=== PATIENT | female | born 1960 | race Caucasian/White ===

== ENCOUNTER 2016-10-28 18:51 | Emergency (ER) | payer OTHER, SELFPAY ==
[2016-10-28 19:00] VITALS: BMI 31.1
--- NOTE | 2016-10-28 19:22 | ED PDOC ---
Arrival/HPI - General Historian: Patient, Family - History of Present Illness Time/Duration: Prior to Arrival - General Chief Complaint: Back Pain Time Seen by Provider: 10/28/16 19:00 - History of Present Illness Narrative History of Present Illness (Text): 10/28/16 19:16 56 y/o female with hx HLD presents with complaints of left sided flank pain. Patient states pain started suddenly today and has been unrelenting. Patient localizes her pain to the left superior thoracic wall/flank. Pain is worse with movement. Patient took Tylenol and Ibuprofen without significant relief. Patient denies dysuria, hematuria,n/v/d, abdominal pain, fever, chills, midline back pain or recent trauma or injury. Patient has no history of prior renal calculi. (Musa Ma) Past Medical History - Provider Review Nursing Documentation Reviewed: Yes - Infectious Disease Hx of Infectious Diseases: None - Cardiac Hx Cardiac Disorders: Yes - Pulmonary Hx Respiratory Disorders: No - Neurological Hx Neurological Disorder: No - HEENT Hx HEENT Disorder: No - Renal Hx Renal Disorder: No - Endocrine/Metabolic Hx Endocrine Disorders: No - Hematological/Oncological Hx Blood Disorders: No - Integumentary Hx Dermatological Disorder: No - Musculoskeletal/Rheumatological Hx Musculoskeletal Disorders: No - Gastrointestinal Hx Gastrointestinal Disorders: No - Genitourinary/Gynecological Hx Genitourinary Disorders: No - Psychiatric Hx Psychophysiologic Disorder: No Hx Substance Use: No - Surgical History Other/Comment: abdominal plasty - Anesthesia Hx Anesthesia: No Hx Anesthesia Reactions: No Hx Malignant Hyperthermia: No Family/Social History - Physician Review Nursing Documentation Reviewed: Yes Family/Social History: Unknown Family HX Smoking Status: Never Smoked Hx Alcohol Use: No Hx Substance Use: No Allergies/Home Meds Allergies/Adverse Reactions: Allergies No Known Allergies Allergy (Verified 10/28/16 19:00) Review of Systems - Physician Review All systems were reviewed & negative as marked: Yes - Review of Systems Constitutional: absent: Fatigue, Fevers Eyes: Normal, Photophobia ENT: Normal Respiratory: absent: SOB, Cough Cardiovascular: absent: Chest Pain, [place] Gastrointestinal: absent: Abdominal Pain, Diarrhea, Nausea, Vomiting Genitourinary Female: Other (left flank pain ). absent: Dysuria, Frequency, Hematuria, Urine Output Changes Musculoskeletal: absent: Arthralgias, Back Pain, Neck Pain Skin: absent: Rash, Pruritis Neurological: absent: Headache, Dizziness, Focal Weakness Psychiatric: absent: Anxiety, Depression Physical Exam Vital Signs Reviewed: Yes Temperature: Afebrile Blood Pressure: Normal Pulse: Regular Respiratory Rate: Normal Appearance: Positive for: Well-Appearing, Non-Toxic Pain Distress: Moderate Mental Status: Positive for: Alert and Oriented X 3 - Systems Exam Head: Present: Atraumatic, Normocephalic Pupils: Present: PERRL Extroacular Muscles: Present: EOMI Conjunctiva: Present: Normal Mouth: Present: Moist Mucous Membranes Respiratory/Chest: Present: Clear to Auscultation, Respiratory Distress. No: Good Air Exchange Cardiovascular: Present: Regular Rate and Rhythm, Normal S1, S2 Abdomen: Present: Normal Bowel Sounds. No: Tenderness, Distention, Peritoneal Signs Back: Present: Normal Inspection, CVA Tenderness (+ left ). No: Paraspinal Tenderness Upper Extremity: Present: Normal Inspection. No: Cyanosis, Edema Lower Extremity: Present: Normal Inspection, NORMAL PULSES. No: Edema, CALF TENDERNESS Neurological: Present: GCS=15, CN II-XII Intact, Speech Normal, Motor Func Grossly Intact Skin: Present: Warm, Dry Psychiatric: Present: Alert, Oriented x 3, Normal Insight, Normal Concentration Vital Signs Temp Pulse Resp BP Pulse Ox 10/28/16 20:04 98 F 72 17 113/72 99 10/28/16 19:09 98.3 F 77 18 164/79 H 100 10/28/16 19:02 98.8 F 74 20 158/87 H 99 Medical Decision Making ED Course and Treatment: 10/28/16 19:25 56 y/o female with hx HLD presenting with left flank pain likely secondary to renal calculus. Patient is afebrile and without urinary complaints or hematuria. Patient has no abdominal pain or n/v/d. - Toradol 30 IV now - CBC - CMP - UA - CT abd/pelvis w/o contrast - reassess 10/28/16 20:44 Labs reviewed. There is no leukocytosis or shift. There is no evidence of renal insufficiency. UA reveals trace blood. There is no evidence of UTI. CT results reviewed and are listed below. There is no renal calculi or evidence of hydronephrosis. On reevaluation patient's pain is greatly improved after having a large flatus. The patient is instructed to f/u at [facility] for continued evaluation of blood noted on UA. EXAM DATE/TIME: 10/28/2016 7:12 PM COMPARISON: There are no prior studies for comparison. FINDINGS: Lower thorax: Heart size is normal. There is atelectasis at the lung bases. There is subsegmental atelectasis in the lingula. There no effusions There is a small hiatal hernia. ABDOMEN: Liver: There is a small calcification in the liver. Gallbladder and bile ducts: Gallbladder is distended with multiple small stones. Common bile duct is unremarkable. Pancreas: unremarkable Spleen: unremarkable Adrenals: unremarkable Kidneys and ureters: Kidneys and ureters are unremarkable. There are no renal or ureteral stones Stomach and bowel: Stomach is partially distended. Rotation is normal. There is no obstruction. There is fecalization in the dista and terminal ileum. Appendix is unremarkable. Colon is incompletely distended which limits evaluation. There is scattered diverticulosis Appendix: See stomach and bowel PELVIS: Bladder: Bladder is partially distended. Reproductive: Uterus and adnexal structures are unremarkable. ABDOMEN and PELVIS: Intraperitoneal space: There is no free air or free fluid. Bones/joints: There are degenerative changes in the osseus structures. Soft tissues: There postsurgical changes in the abdominal wall. There is a small fat containing umbilical hernia. Vasculature: There are vascular calcifications.There are multiple phleboliths. Lymph nodes: There is no pathologic adenopathy. IMPRESSION: Gallstones; no renal or ureteral stones or hydronephrosis ( Musa Ma) Patient Seen With Resident: In agreement with resident note. Patient was seen and evaluated with resident, came up with plan and treatment together. On reevaluation, patient reports that she feels much better and would like to be discharged home. Patient's repeat abdominal exam is soft, nontender, non distended with positive bowel sounds in all 4 quadrants and no peritoneal signs. Patient is tolerating PO without any difficulty. Patient has been made aware that she has hematuria, and she is to follow-up for further investigation with her primary physician Pt states she understands to return to the ER right away for new or worsening symptoms or for inability to f/u with PMD or specialist as instructed. Patient states that she fully agrees with and understands discharge instructions. States that she agrees with the plan and disposition. Verbalized and repeated discharge instructions and plan. I have given the patient opportunity to ask any additional questions. (Harley Vazquez) - Lab Interpretations Lab Results: 10/28/16 19:17 10/28/16 19:17 Lab Results 10/28/16 19:20: Urine Color Yellow, Urine Appearance Clear, Urine pH 6.5, Ur Specific [place] 1.010, Urine Protein Negative, Urine Glucose (UA) Negative, Urine Ketones Negative, Urine Blood Trace-intact H, Urine Nitrate Negative, Urine Bilirubin Negative, Urine Urobilinogen 0.2, Ur Leukocyte Esterase Negative , Urine RBC 1 - 3, Urine WBC 0 - 2, Ur Epithelial Cells 10 - 12 10/28/16 19:17: WBC 5.9 D, RBC 4.70, Hgb 13.6, Hct 40.4, MCV 86.0, MCH 28.9, MCHC 33.7, RDW 13.2, Plt Count 237, MPV 9.9, Gran % 44.7 L, Lymph % (Auto) 47.5 H, [place] % (Auto) 5.9, Eos % (Auto) 1.4 L, Baso % (Auto) 0.5, Gran # 2.63, Lymph # 2.8, [place] # 0.4, Eos # 0.1, Baso # 0.03, Sodium 137, Potassium 4.6, Chloride 98, Carbon Dioxide 29, Anion Gap 15, BUN 12, Creatinine 0.6, Est GFR ( Amer) > 60, Est GFR (Non-Af Amer) > 60, Random Glucose 110, Calcium 9.5, Total Bilirubin 0.6, AST 30, ALT 19, Alkaline Phosphatase 72, Total Protein 8.9 H, Albumin 4.4, Globulin 4.5, Albumin/Globulin Ratio 1.0 L - RAD Interpretation Radiology Orders: 10/28/16 19:12 ABD & PELVIS W/O PO OR IV CONT [CT] Stat - Medication Orders Current Medication Orders: Discontinued Medications Ketorolac Tromethamine (Toradol) 30 mg IVP STAT STA Stop: 10/28/16 19:16 Last Admin: 10/28/16 19:24 Dose: 30 MG IVP Administration Document 10/28/16 19:24 OBI (Rec: 10/28/16 19:24 OBI [id number]) Charges for Administration # of IVP Administrations 1 Disposition/Present on Arrival - Present on Arrival Any Indicators Present on Arrival: No History of DVT/PE: No History of Uncontrolled Diabetes: No Urinary Catheter: No History of Decub. Ulcer: No History Surgical Site Infection Following: None - Disposition Have Diagnosis and Disposition been Completed?: Yes Disposition Time: 20:50 Patient Plan: Discharge - Disposition Diagnosis: Abdominal bloating Disposition: HOME/ ROUTINE Condition: GOOD Discharge Instructions (ExitCare): Gas and Bloating (ED) Print Language: NIGERIEN Additional Instructions: Continue taking Motrin 600mg every 6 hours as needed for pain. You are prescribed a medication for gas relief. Take this before meals as needed for gas. You are given a referral to the [facility] clinic. See the doctors there for continued treatment of the blood found in your urine. Return to the ER if you symptoms worsen or change. Prescriptions: Simethicone [Gas Relief] 125 mg PO Q6H #20 capsule Ibuprofen [Motrin] 600 mg PO Q6H #20 tab Referrals: PCP,NO [Primary Care Provider] - Follow up with primary
[2016-10-28 19:33] LABS: ADD MANUAL DIFF? NO
[2016-10-28 19:39] LABS: PH,URINE 6.5 (4.7-8.0); URINE BILIRUBIN NEGATIVE (NEGATIVE); URINE BLOOD TRACE-INTACT (NEGATIVE); URINE GLUCOSE (UA) NEGATIVE (NEGATIVE); URINE KETONE NEGATIVE (NEGATIVE); URINE LEUKOCYTE ESTERASE NEGATIVE Leu/uL (NEGATIVE); URINE PROTEIN NEGATIVE mg/dL (<30 mg/dL); URINE UROBILINOGEN 0.2 E.U./dL (<1 E.U./dL)
[2016-10-28 19:43] LABS: BASO # 0.03 K/mm3 (0.0-2.0); BASO % 0.5 % (0.0-3.0); EOS # 0.1 (0.0-0.7); EOS % 1.4 % (1.5-5.0); GRAN # 2.63 (1.4-6.5); GRAN % 44.7 % (50.0-68.0); HEMATOCRIT 40.4 % (36.0-48.0); LYMPH # 2.8 (1.2-3.4); LYMPH % 47.5 % (22.0-35.0); MEAN CORPUSCULAR HEMOGLOBIN 28.9 pg (25.0-35.0); MEAN CORPUSCULAR HGB CONC 33.7 g/dl (31.0-37.0); MEAN PLATELET VOLUME 9.9 fl (7.0-11.0); MONO # 0.4 (0.1-0.6); MONO % 5.9 % (1.0-6.0); PLATELET COUNT 237 10^3/uL (120.0-450.0); RED CELL DISTRIBUTION WIDTH 13.2 % (11.5-14.5); WHITE BLOOD COUNT 5.9 10^3/ul (4.5-11.0)
[2016-10-28 19:46] LABS: URINE APPEARANCE CLEAR (CLEAR); URINE COLOR YELLOW (YELLOW)
[2016-10-28 19:55] LABS: ALKALINE PHOSPHATASE 72 U/L (38-133); ALT/SGPT 19 U/L (7-56); AST/SGOT 30 U/L (15-39); BILIRUBIN,TOTAL 0.6 mg/dL (0.2-1.3); BLOOD UREA NITROGEN 12 mg/dL (7-21); CALCIUM 9.5 mg/dL (8.4-10.5); CARBON DIOXIDE 29 mmol/L (21-33); CHLORIDE 98 mmol/L (98-107); GFR AFRICAN-AMERICAN > 60; GLUCOSE,RANDOM 110 mg/dL (70-110); POTASSIUM 4.6 mmol/L (3.6-5.0); SODIUM 137 mmol/L (132-148); TOTAL PROTEIN 8.9 g/dL (5.8-8.3)
[2016-10-28 20:04] VITALS: BP 113/72; PULSE 72; RESP 17; TEMP 98; O2SAT 99
[2016-10-28 20:08] LABS: URINE WBC 0 - 2 /hpf (0-6)
--- NOTE | 2016-10-28 20:28 | CT ---
EXAM: CT Abdomen and Pelvis Without Intravenous Contrast CLINICAL HISTORY: 56 years old, female; Pain; Abdominal pain; Flank; Left; Prior surgery; Surgery type: Abdominalplasty; Additional info: Left flank pain R/O renal stone TECHNIQUE: Axial computed tomography images of the abdomen and pelvis without intravenous contrast. This CT exam was performed using one or more of the following dose reduction techniques: automated exposure control, adjustment of the mA and/or kV according to patient size, and/or use of iterative reconstruction technique. Coronal and sagittal reformatted images were created and reviewed. EXAM DATE/TIME: 10/28/2016 7:12 PM COMPARISON: There are no prior studies for comparison. FINDINGS: Lower thorax: Heart size is normal. There is atelectasis at the lung bases. There is subsegmental atelectasis in the lingula. There no effusions There is a small hiatal hernia. ABDOMEN: Liver: There is a small calcification in the liver. Gallbladder and bile ducts: Gallbladder is distended with multiple small stones. Common bile duct is unremarkable. Pancreas: unremarkable Spleen: unremarkable Adrenals: unremarkable Kidneys and ureters: Kidneys and ureters are unremarkable. There are no renal or ureteral stones Stomach and bowel: Stomach is partially distended. Rotation is normal. There is no obstruction. There is fecalization in the dista and terminal ileum. Appendix is unremarkable. Colon is incompletely distended which limits evaluation. There is scattered diverticulosis Appendix: See stomach and bowel PELVIS: Bladder: Bladder is partially distended. Reproductive: Uterus and adnexal structures are unremarkable. ABDOMEN and PELVIS: Intraperitoneal space: There is no free air or free fluid. Bones/joints: There are degenerative changes in the osseus structures. Soft tissues: There postsurgical changes in the abdominal wall. There is a small fat containing umbilical hernia. Vasculature: There are vascular calcifications.There are multiple phleboliths. Lymph nodes: There is no pathologic adenopathy. IMPRESSION: Gallstones; no renal or ureteral stones or hydronephrosis Additional findings as described above.
== END 2016-10-28 21:03 | disposition home or self-care (01) ==
LOC: ED 18:51
DX: R14.0 Abdominal distension (gaseous) (principal)
CPT/HCPCS: 74176; 80053; 81001; 85025; 96374; 99284; J1885

== ENCOUNTER 2017-10-05 14:44 | Emergency (ER) | payer OTHER ==
[2017-10-05 15:20] VITALS: BMI 33.0
[2017-10-05] MEDS ORDERED: Oxycodone/Acetaminophen 5/325 mg Tab PO STA (15:33)
--- NOTE | 2017-10-05 15:37 | ED PDOC ---
Arrival/HPI - General Chief Complaint: Upper Extremity Problem/Injury Time Seen by Provider: 10/05/17 15:28 Historian: Patient - History of Present Illness Narrative History of Present Illness (Text): 10/05/17 15:34 57yo female with PMHx of hypercholetrolemia and hypertension present with complaint of sharp pain to her left shoulder x days. States pain is worse with abduction of the arm. She reports taking OTC Ibuprofen this morning without relieve. she denies focal weakness, paresthesia, chest pain, any other complaint. Past Medical History - Provider Review Nursing Documentation Reviewed: Yes - Infectious Disease Hx of Infectious Diseases: None - Cardiac Hx Cardiac Disorders: Yes - Pulmonary Hx Respiratory Disorders: No - Neurological Hx Neurological Disorder: No - HEENT Hx HEENT Disorder: No - Renal Hx Renal Disorder: No - Endocrine/Metabolic Hx Endocrine Disorders: No - Hematological/Oncological Hx Blood Disorders: No - Integumentary Hx Dermatological Disorder: No - Musculoskeletal/Rheumatological Hx Musculoskeletal Disorders: No - Gastrointestinal Hx Gastrointestinal Disorders: No - Genitourinary/Gynecological Hx Genitourinary Disorders: No - Psychiatric Hx Psychophysiologic Disorder: No Hx Substance Use: No - Surgical History Other/Comment: abdominal plasty - Anesthesia Hx Anesthesia: No Hx Anesthesia Reactions: No Hx Malignant Hyperthermia: No Family/Social History - Physician Review Nursing Documentation Reviewed: Yes Family/Social History: Unknown Family HX Smoking Status: Never Smoked Hx Alcohol Use: No Hx Substance Use: No Allergies/Home Meds Allergies/Adverse Reactions: Allergies No Known Allergies Allergy (Verified 10/05/17 15:20) Home Medications: Home Meds Medication Instructions Recorded Confirmed Simvastatin [Zocor] 20 mg PO 10/05/17 Review of Systems - Physician Review All systems were reviewed & negative as marked: Yes - Review of Systems Constitutional: Normal Eyes: Normal ENT: Normal Respiratory: Normal Cardiovascular: Normal Gastrointestinal: Normal Genitourinary Female: Normal Musculoskeletal: Arthralgias (Left shoulder) Skin: Normal Neurological: Normal Endocrine: Normal Hemo/Lymphatic: Normal Psychiatric: Normal Physical Exam Vital Signs Reviewed: Yes Vital Signs Temp Pulse Resp BP Pulse Ox 10/05/17 17:14 98.0 F 79 20 133/85 99 10/05/17 15:20 98.5 F 81 18 156/85 H 96 Temperature: Afebrile Blood Pressure: Normal Pulse: Regular Respiratory Rate: Normal Appearance: Positive for: Well-Appearing, Non-Toxic, Comfortable Pain Distress: None Mental Status: Positive for: Alert and Oriented X 3 - Systems Exam Head: Present: Atraumatic, Normocephalic Pupils: Present: PERRL Extroacular Muscles: Present: EOMI Conjunctiva: Present: Normal Mouth: Present: Moist Mucous Membranes Neck: Present: Normal Range of Motion Respiratory/Chest: Present: Clear to Auscultation, Good Air Exchange. No: Respiratory Distress, Accessory Muscle Use Cardiovascular: Present: Regular Rate and Rhythm, Normal S1, S2. No: Murmurs Abdomen: Present: Normal Bowel Sounds. No: Tenderness, Distention, Peritoneal Signs Back: Present: Normal Inspection Upper Extremity: Present: NORMAL PULSES, Tenderness (Left shoulder AC joint), Neurovascularly Intact. No: Cyanosis, Edema, Normal ROM (Limited on abduction up to 90degree secondary to pain), Swelling, Erythema, Deformity Lower Extremity: Present: Normal Inspection. No: Edema Neurological: Present: GCS=15, CN II-XII Intact, Speech Normal Skin: Present: Warm, Dry, Normal Color. No: Rashes Psychiatric: Present: Alert, Oriented x 3, Normal Insight, Normal Concentration Medical Decision Making ED Course and Treatment: 10/05/17 19:40 EKG NSR @73bpm. Left shoulder xray - Calcium deposit noted PT was NVI. Strength 5/5. Distal pulse was intact. Arm sling placed. Pt's pain was controlled in ED. Result was DW the pt and she was DC home with Tramadol and Naprosyn. Referred to ortho. - RAD Interpretation Radiology Orders: 10/05/17 15:32 SHOULDER LEFT [RAD] Stat - Medication Orders Current Medication Orders: Discontinued Medications Ketorolac Tromethamine (Toradol) 60 mg IM STAT STA Stop: 10/05/17 15:34 Last Admin: 10/05/17 15:58 Dose: 60 mg MAR Pain Assessment Document 10/05/17 15:58 MS (Rec: 10/05/17 15:59 MS [id number]) Pain Reassessment Is this a pain reassessment? No Sleep Is patient sleeping during reassessment? No Presence of Pain Presence of Pain Yes Pain Scale Used Pain Scale Used Numeric Location Pain Location Body Site Back Description Description Constant Intensity of Pain at present 8 Pain Behavior Moaning Guarding IM Administration Charges Document 10/05/17 15:58 MS (Rec: 10/05/17 15:59 MS [id number]) Injection Site MAR Injection Site Left Deltoid Charges for Administration # of IM Administrations 1 Oxycodone/Acetaminophen (Percocet 5/325 Mg Tab) 1 tab PO STAT STA Stop: 10/05/17 15:34 Last Admin: 10/05/17 15:59 Dose: 1 tab MAR Pain Assessment Document 10/05/17 15:59 MS (Rec: 10/05/17 15:59 MS [id number]) Pain Reassessment Is this a pain reassessment? No Sleep Is patient sleeping during reassessment? No Presence of Pain Presence of Pain Yes Pain Scale Used Pain Scale Used Numeric Location Left, Right or Bilateral Left Upper or Lower Lower Pain Location Body Site Shoulder Back Description Description Intermittent Intensity of Pain at present 8 Pain Behavior Moaning Guarding Grasping Site Disposition/Present on Arrival - Present on Arrival Any Indicators Present on Arrival: No History of DVT/PE: No History of Uncontrolled Diabetes: No Urinary Catheter: No History of Decub. Ulcer: No History Surgical Site Infection Following: None - Disposition Have Diagnosis and Disposition been Completed?: Yes Diagnosis: Calcific tendinitis Disposition: HOME/ ROUTINE Disposition Time: 17:55 Patient Plan: Discharge Patient Problems: Current Active Problems Problem Status Onset Calcific tendinitis Acute Condition: STABLE Discharge Instructions (ExitCare): Tendonitis (DC) Additional Instructions: Follow up with orthopedist Return to ED for any new or worsening symptoms Prescriptions: Naproxen [Naprosyn] 500 mg PO BID #20 tablet traMADol [Ultram] 50 mg PO TID #10 tab Referrals: Laura Rabago APN-C [Primary Care Provider] - Follow up with primary Navdeep Watters MD [Staff Provider] - Follow up with primary [facility] [place] [Outside] - Follow up with primary Forms: [employer] (Welsh)
[2017-10-05 17:15] VITALS: BP 133/85; PULSE 79; RESP 20; TEMP 98; O2SAT 99
--- NOTE | 2017-10-05 20:30 | RAD ---
PROCEDURE: Radiographs of the Left Shoulder HISTORY: shoulder pain COMPARISON: No prior. FINDINGS: BONES: No evidence of acute fracture or dislocation. There is a possible focal lucency at the left humeral head adjacent to the greater tuberosity versus artifact. There is a no evidence JOINTS: Arthritic degenerative changes are noted. SOFT TISSUES: There are foci of soft the tissue calcification seen superior to the left humeral head may represent rotator cuff calcified tendinitis. OTHER FINDINGS: Narrowing of the subacromial space is noted. IMPRESSION: Findings suspicious for rotator cuff calcified tendinitis. Moderate to severe narrowing of the subacromial space. Questionable focal lucency at the left humeral head. If clinically warranted further assessment by MRI is suggested.
--- NOTE | 2017-10-06 10:32 | CARD ---
APPROVED REPORT EKG Measurement Heart [id number] <Conclusion> Normal sinus rhythm Normal ECG
== END 2017-10-05 18:32 | disposition home or self-care (01) ==
LOC: ED 14:44
DX: M75.32 Calcific tendinitis of left shoulder (principal); I10 Essential (primary) hypertension; E78.00 Pure hypercholesterolemia, unspecified
CPT/HCPCS: 73030; 93005; 96372; 99284; J1885